=== PATIENT | male | born 1990 | race Two or more races ===

== ENCOUNTER → 2025-02-24 | Outpatient (CLI) | payer SELFPAY ==
--- NOTE | 2025-02-24 | XR_ITS ---
8\examination: PA lateral chest 2 views TECHNIQUE: Upright PA lateral chest 2 views Exam date and time: February 24, 2025 0720 hours Comparison August 24, 2024 INDICATIONS: Follow-up pulmonary nodule right upper lobe FINDINGS: Normal heart size Stable 2 mm pulmonary nodule right upper lobe No pneumonia or pulmonary edema IMPRESSION: Stable 2 mm pulmonary nodule right upper lobe
== END | disposition home or self-care (01) ==
PROVIDERS: PCP Family Medicine; Referring Provider Family Medicine; Visit Provider Family Medicine
DX: R91.1 Solitary pulmonary nodule (principal)
CPT/HCPCS: 71046

== ENCOUNTER → 2025-06-06 | Outpatient (CLI) | payer BC, SELFPAY ==
[2025-06-06 08:44] LABS: Alanine Aminotransferase 17 U/L (10-49); Albumin, Serum 4.5 gm/dL (3.5-5.0); Albumin/Globulin Ratio 1.6 (1.2-2.2); Alkaline Phosphatase 95 U/L (46-116); Anion Gap 10 (7-16); Aspartate Amino Transferase 16 U/L (0-34); BUN/Creatinine Ratio 8 Ratio (12-20); Bilirubin,Total 1.2 mg/dL (0.3-1.2); Blood Urea Nitrogen 9 mg/dL (9-23); Calcium 9.5 mg/dL (8.3-10.6); Calcium (Corrected) 9.5 mg/dL (8.5-10.1); Carbon Dioxide 29.9 mMol/L (20.0-31.0); Chloride 104 mMol/L (98-107); Creatinine (Component) 1.1 mg/dL (0.6-1.3); Globulin 2.9 gm/dL (2.3-3.5); Glucose 101 mg/dL (74-106); Osmolality,Calculated 285 (275-295); Potassium 4.1 mMol/L (3.4-5.1); Sodium 144 mMol/L (136-145); Total Protein 7.4 gm/dL (5.7-8.2); eGFR > 60 See Note
[2025-06-06 10:01] LABS: Urea Breath Test Negative (Negative)
== END | disposition home or self-care (01) ==
PROVIDERS: PCP Family Medicine; Referring Provider Family Medicine; Visit Provider Family Medicine
DX: R19.7 Diarrhea, unspecified (principal); R10.84 Generalized abdominal pain
CPT/HCPCS: 36415; 80053; 83013; 83014; 87015; 87045; 87046; 87899

== ENCOUNTER → 2025-06-21 | Outpatient (CLI) | payer BC, SELFPAY ==
--- NOTE | 2025-06-21 09:30 | XR_ITS ---
Examination: Abdomen sonogram, complete Date and time of exam: June 21, 2025 at 10:10 AM INDICATIONS: Right upper abdominal pain beginning one month ago. Technique: Multiple real-time grayscale transabdominal sonographic images of the abdomen have been obtained. Findings: Normal gallbladder. Normal common bile duct 0.2 cm Pancreatic head 2.4 cm Aorta not enlarged. Liver 16.1 cm irregular contour of fatty infiltration Normal hepatopedal portal venous flow Patent IVC Right kidney 10.1 cm renal cortex 1.2 cm Left kidney 10.1 cm cortex 1.4 cm Mild bilateral renal scar formation Spleen 9.9 cm IMPRESSION: Normal gallbladder. Normal common bile duct Suspect primary hepatocellular disease
== END | disposition home or self-care (01) ==
PROVIDERS: PCP Family Medicine; Referring Provider Family Medicine; Visit Provider Family Medicine
DX: R10.84 Generalized abdominal pain (principal)
CPT/HCPCS: 76700